=== PATIENT | female | born 1970 | race Caucasian/White ===

== ENCOUNTER 2018-08-28 11:13 | Emergency (ER) | payer SELFPAY ==
[2018-08-28 11:16] VITALS: BP 135/91
--- NOTE | 2018-08-28 11:23 | ER Report ---
History and Physical Time Seen By MD: 11:23 Hx. of Stated Complaint: patient reports tooth pain and facial swelling to lower left jaw since . HPI/ROS CHIEF COMPLAINT: Tooth pain and facial swelling HISTORY OF PRESENT ILLNESS: Patient is a 48 year old female presenting to the ED with complaints of tooth pain and facial swelling. States the pain started 4 days ago. Patient has been using Peroxide rinses which has been helping. This morning, the patient woke up and her face swelling was worse and the pain in her tooth was also worse. Allergies: Coded Allergies: No Known Drug Allergies (Unverified , 08/28/18) Home Meds Active Scripts Amoxicillin 500 Mg Tab (AMOXICILLIN 500 MG TAB) 500 Mg Tablet, 1 TAB PO Q8H, #21 TAB Prov:ASHLEY NAQVI DEISI 08/28/18 Past Medical/Surgical History Patient denies any medical history. Patient states she had a surgery on her ov joellen when she was in her 20's. Reviewed Nurses Notes: Yes Hx Substance Use Disorder: No Hx Alcohol Use: No Constitutional Vital Sign - Last 24 Hours 08/28/18 11:16 Temp 98.7 Pulse 131 Resp 16 B/P (MAP) 135/91 Pulse Ox 91 O2 Delivery Room Air Physical Exam General appearance: Alert no distress. Respiratory: Chest is non tender, lungs are clear to auscultation. Cardiac: Regular rate and rhythm. Ears: TMs are pearly rome with appropriate landmarks. Cerumen noted in both ears. Mouth: Slight erythemia noted at gumline near tooth 21. Tender to palpitation tooth 22 with tooth 21 broken at gum line. DIFFERENTIAL DIAGNOSIS: After history and physical exam differential diagnosis was considered for toothache, tooth abscess. Medical Decision Making ED Course/Re-evaluation ED Course Patient was admitted to the room and placed in the bed. History and physical were obtained. Differential diagnoses were considered. Plan of care was discussed with the patient. A prescription was sent for an antibiotic. A list of dentists were given to the patient. Patient verbalized understanding Patient was discharged to home. Decision to Disposition Date: Aug 28, 2018 Decision to Disposition Time: 11:52 Depart Departure Latest Vital Signs Vital Signs Date Time Temp Pulse Resp B/P (MAP) Pulse Ox O2 Delivery O2 Flow Rate FiO2 08/28/18 11:16 98.7 131 16 135/91 91 Room Air Impression: Primary Impression: Toothache Condition: Improved Disposition: HOME OR SELF-CARE New Scripts Amoxicillin 500 Mg Tab (AMOXICILLIN 500 MG TAB) 500 Mg Tablet 1 TAB PO Q8H, #21 TAB Prov: ASHLEY NAQVI 08/28/18 Patient Instructions: Toothache (ED) Additional Instructions: Please take antibiotics as ordered. Take a probiotic or eat yogurt while taking the antibiotic. Please follow up with a Dentist. Eat foods that are soft. Advance as tolerated. Alternate Tylenol and Ibuprofen for pain. ASHLEY NAQVI Aug 28, 2018 11:23
[2018-08-28] MEDS ORDERED: AMOX500T10 PO (11:54)
== END 2018-08-28 12:09 | disposition home or self-care (01) ==
LOC: ER 11:27
DX: K08.89 Other specified disorders of teeth and supporting structures (principal)
CPT/HCPCS: 99281